=== PATIENT | female | born 1960 | race Caucasian/White ===

== ENCOUNTER 2023-04-09 05:18 | Day surgery (SDC) | payer OTHER ==
[2023-04-02 15:12] LABS: CLARITY,URINE CLEAR (Clear); COLOR,URINE YELLOW (Yellow); GLUCOSE, URINE NEGATIVE (Neg); KETONES,URINE NEGATIVE (Neg); LEUKOCYTE ESTERASE ,URINE NEGATIVE (Neg); NITRITES, URINE NEGATIVE (Neg); OCCULT BLOOD,URINE MODERATE (Neg); PROTEIN,URINE NEGATIVE (Neg); UROBILINOGEN,URINE 0.2 E.U/dL (0.2-1.0)
[2023-04-02 15:14] LABS: BASOPHILS % (AUTO) 0.6 % (0-1); EOSINOPHILS # (AUTO) 0.1 X10'3 (0-0.9); EOSINOPHILS % (AUTO) 1.6 % (0-6); LYMPHOCYTES # (AUTO) 1.7 X10'3 (1.1-4.8); LYMPHOCYTES % (AUTO) 22.5 % (21-51); MEAN CORPUSCULAR HEMOGLOBIN 29.5 PG (27.0-31.0); MEAN CORPUSCULAR HGB CONC 33.9 g/dL (33.0-36.5); MEAN CORPUSCULAR VOLUME 87.1 FL (78-98); MEAN PLATELET VOLUME 8.6 FL (7.4-10.4); MONOCYTES # (AUTO) 0.6 X10'3 (0-0.9); MONOCYTES % (AUTO) 7.8 % (2-12); NEUTROPHILS # (AUTO) 5.1 X10'3 (1.8-7.7); NEUTROPHILS % (AUTO) 67.5 % (42-75); PRE OP HEMATOCRIT 44.3 % (35.0-45.0); PRE OP PLATELET COUNT 211 X10'3 (140-440); RED BLOOD COUNT 5.08 X10'6 (4.20-5.60); RED CELL DISTRIBUTION WIDTH 14.4 % (11.5-14.5)
[2023-04-02 15:16] LABS: UA COLLECTION TYPE CLN CATCH MIDSTREAM
[2023-04-02 15:18] LABS: WBC,URINE 0-4 /HPF (0-4)
[2023-04-02 15:19] LABS: BACTERIA,URINE 3+ /HPF (Neg); MUCUS STRANDS FEW /LPF (Neg); SQUAMOUS EPITHELIAL CELL,UR MANY /LPF (FEW)
[2023-04-02 15:26] LABS: ALKALINE PHOSPHATASE 108 IU/L (46-116); BLOOD UREA NITROGEN 12 MG/DL (7-18); BUN/CREATININE RATIO 12.6 (10.0-20.0); CALCIUM 9.6 MG/DL (8.5-10.1); CHLORIDE 105 MMOL/L (99-107); CREATININE 0.95 MG/DL (0.40-0.90); PRE OP ALT 41 U/L (30-65); PRE OP ANION GAP 11 (8-16); PRE OP AST 30 U/L (10-37); PRE OP BILIRUB, TOTAL 0.3 MG/DL (0.0-1.0); PRE OP GLUCOSE 102 MG/DL (70-104); PRE OP POTASSIUM 3.6 MMOL/L (3.4-5.1); PRE OP SODIUM 140 MMOL/L (135-145); TOTAL CARBON DIOXIDE 23.8 MMOL/L (24-32); TOTAL PROTEIN 8.1 G/DL (6.4-8.2); eGFR 60 ML/MIN
[~2023-04-09] VITALS: Ht 170.2 cm; Wt 106.0 kg
[2023-04-09] VITALS (21 sets, daily range): BP systolic 105–139; BP diastolic 57–92; PULSE 58–74; RESP 11–17; TEMP 97.9; O2SAT 92–100
[~2023-04-09 05:18] MED LIST: CELE-85 PO; CLON2TAB11 PO; LEVO100T9 PO; PREG100C55 PO; SERT-434 PO; ringers solution, lacted 1,000 ML IV SCH
[2023-04-09] MEDS ORDERED: cefazolin 2gm/D5W 100mL 100 ML IV ONE (05:30)
[2023-04-09] MEDS ORDERED: famotidine 20mg tablet PO ONE (05:30)
[2023-04-09] MEDS ORDERED: bacitracin 15gm ointment TP ONE (06:37)
[2023-04-09] MEDS ORDERED: BUPIVAcaine/PF 2.5 mg/ml (0.25%) 30ml vial ONE (06:37)
[2023-04-09] MEDS ORDERED: BUPIVAcaine/PF 2.5 mg/ml (0.25%) 30ml vial IJ ONE (07:00)
[2023-04-09] MEDS ORDERED: BUPIVACAINE liposomal/PF 13.3 MG/ML vial IM ONE (07:07)
[2023-04-09] MEDS ORDERED: BUPIVAcaine/PF 2.5mg/ml (0.25%) 10ml vial ONE (07:07)
[2023-04-09] MEDS ORDERED: midazolam 1 mg/ML 2ml injection ONE (07:13)
[2023-04-09] MEDS ORDERED: fentaNYL /PF 50mcg/ml 5ml ampule ONE (07:16)
[2023-04-09] MEDS ORDERED: LIDOcaine 2% (20mg/ml) 5ml vial ONE (07:19)
[2023-04-09] MEDS ORDERED: propofol inj 20 ML IV ONE (07:19)
[2023-04-09] MEDS ORDERED: ringers solution, lacted 1,000 ML IV SCH (07:25)
[2023-04-09] MEDS ORDERED: labetalol 20mg/4ml (5mg/ml) syringe IV PRN (07:25)
[2023-04-09] MEDS ORDERED: fentaNYL/PF 50MCG/1 ML 2ML syringe IV PRN ×2 (07:25)
[2023-04-09] MEDS ORDERED: hydrALAZINE 20mg/ml inj. IV PRN (07:25)
[2023-04-09] MEDS ORDERED: morphine 2 MG/ML inj. syringe IV PRN (07:25)
[2023-04-09] MEDS ORDERED: ondansetron/PF 4mg/2ml inj IV PRN (07:25)
[2023-04-09] MEDS ORDERED: ROPIVAcaine 0.2% (10 MG/5 ML) BOLUS INJECTION POPLITEAL PRN (07:25)
[2023-04-09] MEDS ORDERED: ROPIVAcaine 0.2%/PF PUMP/bolus 545 ML POPLITEAL SCH (07:25)
[2023-04-09] MEDS ORDERED: proCHLORperazine 10 MG/2 ml inj IV PRN (07:25)
[2023-04-09] MEDS ORDERED: ePHEDrine 50MG/ML INJ. ONE (08:09)
[2023-04-09] MEDS ORDERED: acetaminophen 1,000mg/100ml IV 100 ML IV ONE (08:16)
--- NOTE | 2023-04-09 10:12 | NUR ---
Received from OR via [facility], accompanied by Anesthesiologist DR SIERRA and report given by Anesthesiologist AND WOOD SASH AND FRAME CARPENTER. PT VERY DROWSY, DENIES PAIN. RIGHT FOOT/LOWER LEG IN SPLINT W/NORMA WRAP COVERING CDI. TOES PWD, CERTIFIED PROSTHETIST/ORTHOTIST 1-2 SECONDS. Addendum: 04/09/23 at 1109 by Divine Schuster RN Amended: Links added.
[2023-04-09] MEDS: morphine 4 MG/ML inj SYRINge IV PRN ×2 (10:55→11:12)
[2023-04-09] MEDS ORDERED: HYDROcodone/acetaminophen 5mg/325mg tablet PO ONE (11:45)
--- NOTE | 2023-04-09 13:12 | NUR ---
PTS SISTER IN, DETAILED D/C INSTRUCTIONS GIVEN AND DEMONSTRATED W/PT AND PTS SISTER WHO VERBALIZED UNDERSTANDING. ON-Q EDUCATION DONE WELL ALONG WITH HOW TO ADJUST DOSAGE, BOLUS AND D/C CATHETER ONCE ITS EMPTY, ON-Q BOOKLETS SENT W/PT, LEG ELEVATOR SENT, PTS OR BOOT AND CLOTHING ON PTS BODY. PTS SISTER HAS PTS GLASSES. PT VOIDED X 1 ON BEDPAN. PT ABLE TO PIVOT FROM BED TO W/C W/O DIFFICULTY AND TO CAR VIA THE SAME. PT D/CD TO HOME VIA W/C TO PRIVATE VEHICLE W/O INCIDENT. Addendum: 04/09/23 at 1329 by Divine Schuster RN Amended: Links added.
== END 2023-04-09 11:51 | disposition home or self-care (01) ==
LOC: PAS 05:18
PROVIDERS: ATTEND Podiatrist Foot & Ankle Surgery
DX: M21.41 Flat foot [pes planus] (acquired), right foot (principal); M21.6X1 Other acquired deformities of right foot; M19.071 Primary osteoarthritis, right ankle and foot; E03.9 Hypothyroidism, unspecified; F41.9 Anxiety disorder, unspecified; M35.00 Sjogren syndrome, unspecified; E66.9 Obesity, unspecified; Z68.36 Body mass index [BMI] 36.0-36.9, adult; G25.81 Restless legs syndrome; G89.18 Other acute postprocedural pain; Z98.890 Other specified postprocedural states; Z79.899 Other long term (current) drug therapy; Z72.89 Other problems related to lifestyle; Z96.652 Presence of left artificial knee joint; Z98.51 Tubal ligation status
CPT/HCPCS: 20900; 27687; 28238; 28300; 28304; 36415; 64445; 64447; 73620; 80053; 81001; 82948; 85025; 87077; 87088; 87186; 93005; A6223; A6258; C1713; C9290; J0131; J0690; J2250; J2270; J2704; J2795; J3010; J3490; J7030; J7120; Z7506; Z7508; Z7512; 76000; A4215; A4618; A6253; A6449; A7000

== ENCOUNTER 2024-08-28 07:31 | Outpatient (CLI) | payer MEDICAID ==
[~2024-08-28 07:31] MED LIST changes: +CELE-127 PO; -CELE-85 PO; -PREG100C55 PO; +PREG100C56 PO; -ringers solution, lacted 1,000 ML IV SCH
== END 2024-08-28 23:59 | disposition home or self-care (01) ==
LOC: MRI02 07:31
PROVIDERS: ATTEND Nurse Practitioner Adult Health
DX: M47.817 Spondylosis without myelopathy or radiculopathy, lumbosacral region (principal); M48.07 Spinal stenosis, lumbosacral region; M51.369 Other intervertebral disc degeneration, lumbar region without mention of lumbar back pain or lower extremity pain; M43.16 Spondylolisthesis, lumbar region; M70.62 Trochanteric bursitis, left hip; M54.50 Low back pain, unspecified; M25.552 Pain in left hip; Z96.642 Presence of left artificial hip joint; Y93.89 Activity, other specified
CPT/HCPCS: 72148

== ENCOUNTER 2024-10-10 10:33 | Outpatient (CLI) | payer MEDICAID | END 2024-10-10 23:59 | disposition home or self-care (01) | LOC: RAD 10:33 | PROVIDERS: ATTEND Podiatrist Foot & Ankle Surgery | DX: M15.9 Polyosteoarthritis, unspecified (principal); M79.89 Other specified soft tissue disorders; M79.671 Pain in right foot; Z98.890 Other specified postprocedural states | CPT/HCPCS: 73700 ==